=== PATIENT | female | born 2005 | race Caucasian/White ===

== ENCOUNTER 2023-11-11 17:45 | Emergency (ER) | payer BC ==
[2023-11-11 18:07] VITALS: RESP 18; BMI 28.1
[2023-11-11 19:28] LABS: BASO % 0.3 % (0-2.0); EOS % 0.4 % (0-4.5); HEMATOCRIT 37.8 % (32.4-45.2); HEMOGLOBIN 12.6 GM/dL (10.7-15.3); LYMPH % 4.9 % (8-40); MCH 23.6 pg (25.7-33.7); MCHC 33.4 g/dl (32.0-36.0); MEAN CELL VOLUME 70.9 fl (80-96); MEAN PLT VOLUME 8.4 fl (7.5-11.1); MONO % 14.1 % (3.8-10.2); NEUT % 80.3 % (42.8-82.8); PLATELET COUNT 227 10^3/uL (134-434); RBC 5.33 M/mm3 (3.60-5.2); RDW 14.5 % (11.6-15.6); WHITE BLOOD COUNT 7.8 K/mm3 (4.0-10.0)
[2023-11-11 19:50] LABS: POTASSIUM 3.6 mmol/L (3.5-5.1)
[2023-11-11 19:52] LABS: CALCIUM 9.3 mg/dL (8.5-10.1)
[2023-11-11 19:53] LABS: ALBUMIN 4.4 g/dl (3.4-5.0); BLOOD UREA NITROGEN 8.7 mg/dL (7-18)
[2023-11-11 19:55] LABS: THROAT:GRP A STREP NOT DETECTED (NOTDETECTED)
[2023-11-11 19:56] LABS: CREATININE 0.9 mg/dL (0.55-1.3)
[2023-11-11 19:57] LABS: BILIRUBIN,TOTAL 0.3 mg/dL (0.2-1); TOT PROT 8.2 g/dl (6.4-8.2)
[2023-11-11] MEDS: MAG HYDROX/AL HYDROX/SIMETH 30 ML UNIT-DOSE CUP PO ONE (20:30)
[2023-11-11] MEDS: MECLIZINE HCL 25 MG TABLET (FP) PO ONE (20:30)
[2023-11-11] MEDS: ONDANSETRON 4 MG/2 ML VIAL IVPUSH ONE (20:30)
[2023-11-11] MEDS: SODIUM CHLORIDE 0.9% 1000 ML INFUS.BAG IV ONE (20:30)
[2023-11-11] MEDS: ACETAMINOPHEN 1000 MG/100 ML BAG IVPB ONE (21:04)
[2023-11-11 21:35] LABS: HCG,QUALITATIVE URINE Negative; URINE APPEARANCE CLEAR; URINE BILIRUBIN NEGATIVE (NEGATIVE); URINE COLOR YELLOW; URINE GLUCOSE (UA) NEGATIVE (NEGATIVE); URINE KETONE TRACE (NEGATIVE); URINE LEUK ESTERASE NEGATIVE (NEGATIVE); URINE NITRITE NEGATIVE (NEGATIVE); URINE PROTEIN NEGATIVE (NEGATIVE)
[2023-11-11] MEDS ORDERED: IBUPROFEN 400 MG TABLET (FP) PO ONE (21:40)
[2023-11-11] MEDS: IBUPROFEN 400 MG TABLET (FP) PO ONE (21:42)
[2023-11-11 21:44] VITALS: BP 107/55; PULSE 90; TEMP 99
== END 2023-11-11 21:49 | disposition home or self-care (01) ==
LOC: JER 17:45
PROC: 3E033NZ Introduction of Analgesics, Hypnotics, Sedatives into Peripheral Vein, Percutaneous Approach (ICD-10-PCS; principal; 2023-11-11)
PROC: 3E033GC Introduction of Other Therapeutic Substance into Peripheral Vein, Percutaneous Approach (ICD-10-PCS; 2023-11-11)
DX: J02.9 Acute pharyngitis, unspecified (principal); R50.9 Fever, unspecified; R11.2 Nausea with vomiting, unspecified; R42 Dizziness and giddiness; R51.9 Headache, unspecified; Z20.822 Contact with and (suspected) exposure to COVID-19
CPT/HCPCS: 0241U-QW; 36415; 80053; 81003; 83690; 84703; 85025; 87086; 87651; 99284-25; J0131